=== PATIENT | female | born 1995 | race Caucasian/White ===

== ENCOUNTER → 2017-05-03 | Outpatient (CLI) | payer OTHER ==
[~2017-05-03] MED LIST: LEVO112T2 PO; NORG1TAB3 PO; OXYC1TAB63 PO
[2017-05-03 13:55] LABS: BASOPHIL % 0.4 % (0.0-2.0); EOSINOPHIL # 0.1 TH/MM3 (0-0.4); EOSINOPHIL % 0.7 % (0.0-4.0); HEMATOCRIT 39.7 % (35.0-46.0); HEMO FLAGS DIFF FINAL; LYMPH % 32.7 % (9.0-44.0); LYMPHOCYTE # 2.8 TH/MM3 (1.0-4.8); MEAN CELL VOLUME 88.1 FL (80.0-100.0); MEAN CORPUSCULAR HEMOGLOBIN 29.3 PG (27.0-34.0); MEAN CORPUSCULAR HGB CONC 33.2 % (32.0-36.0); NEUT % 59.2 % (16.0-70.0); PLATELET COUNT 309 TH/MM3 (150-450); RED BLOOD COUNT 4.51 MIL/MM3 (4.00-5.30); RED CELL DISTRIBUTION WIDTH 13.1 % (11.6-17.2); WHITE BLOOD COUNT 8.5 TH/MM3 (4.0-11.0)
[2017-05-03 14:03] LABS: APTT (PATIENT) 30.3 SEC (24.3-30.1); INTERNATIONAL NORMALIZED RATIO 0.9 RATIO; PROTHROMBIN TIME - PATIENT 10.3 SEC (9.8-11.6)
[2017-05-03 14:18] LABS: ALT (GPT) 35 U/L (10-53); ANION GAP 11 MEQ/L (5-15); AST (GOT) 28 U/L (15-37); BICARBONATE 23.5 MEQ/L (21.0-32.0); BLOOD UREA NITROGEN 12 MG/DL (7-18); CHLORIDE 106 MEQ/L (98-107); GLOMERULAR FILTRATION RATE 81 ML/MIN (>89); GLUCOSE,FASTING 69 MG/DL (74-99); POTASSIUM 3.9 MEQ/L (3.5-5.1); SODIUM (NA) 140 MEQ/L (136-145)
[2017-05-03 14:22] LABS: ALKALINE PHOSPHATASE 81 U/L (45-117); LDH SERUM 158 U/L (84-246); TOTAL BILIRUBIN ADULT 0.4 MG/DL (0.2-1.0)
[2017-05-03 14:33] LABS: BHCG SCREEN QUALITATIVE LESS THAN 1 MIU/ML (0-5)
== END ==
LOC: CPRE 12:30
PROVIDERS: ATTEND Obstetrics & Gynecology Gynecologic Oncology
DX: Z01.812 Encounter for preprocedural laboratory examination (principal); R19.09 Other intra-abdominal and pelvic swelling, mass and lump
CPT/HCPCS: 36415; 80053; 82105; 82378; 83615; 84703; 85025; 85610; 85730; 86304

== ENCOUNTER 2017-05-10 08:22 | Observation (INO) | payer OTHER ==
[~2017-05-10] VITALS: Ht 162.6 cm; Wt 87.5 kg
[~2017-05-10 08:22] MED LIST changes: -OXYC1TAB63 PO
[2017-05-10 09:38] VITALS: BP 129/80; PULSE 71; RESP 20; TEMP 98.6; O2SAT 100
[2017-05-10] MEDS ORDERED: HEPARIN SODIUM - SQ 10,000 UNITS/ML VIAL SQ SCH (09:45)
[2017-05-10] MEDS ORDERED: CHLORHEXIDINE GLUCONATE 2 % 1 PACK (2 CLOTHS) TOPICAL PRN (09:45)
[2017-05-10] MEDS ORDERED: METOPROLOL TARTRATE 25 MG TAB PO PRN (09:45)
[2017-05-10] MEDS ORDERED: LACTATED RINGER'S 1000 ML IV PRN (09:45)
[2017-05-10] MEDS ORDERED: INSULIN HUMAN REGULAR 1,000 UNITS/10 ML VIAL SQ PRN (09:45)
[2017-05-10] MEDS ORDERED: SODIUM CHLORID 0.9% 500 ML IV PRN (09:45)
[2017-05-10] MEDS ORDERED: ceFAZolin 2 GM PREMIX 50 ML IV SCH (09:45)
[2017-05-10] MEDS ORDERED: POVIDONE IODINE 5% (ANTISEPSIS KIT) 4 APPLICATIONS EACH NARE PRN (09:45)
[2017-05-10] MEDS ORDERED: ACETAMINOPHEN 1000 MG/100 ML VIAL IV ONE (11:03)
[2017-05-10] MEDS ORDERED: MIDAZOLAM HCL 2 MG/2 ML VIAL ONE (11:04)
[2017-05-10] MEDS ORDERED: HYDROmorphone HCL PF 2 MG/ML VIAL ONE (11:04)
[2017-05-10] MEDS ORDERED: fentaNYL CITRATE 250 MCG/5 ML AMP ONE ×2 (11:04→16:09)
[2017-05-10] MEDS ORDERED: ARTIFICIAL TEARS OPTH OINT 3.5 APPLIC/3.5 GM TUBO ONE (11:04)
[2017-05-10] MEDS ORDERED: FAMOTIDINE 20 MG/2 ML VIAL ONE (11:05)
[2017-05-10] MEDS ORDERED: DEXAMETHASONE SOD PHOS 4 MG/ML VIAL ONE (11:05)
[2017-05-10] MEDS ORDERED: SUGAMMADEX SODIUM 200 MG/2 ML VIAL IV PUSH ONE ×2 (11:05)
[2017-05-10] MEDS ORDERED: ONDANSETRON HCL 4 MG/2 ML VIAL IV PUSH ONE (12:00)
[2017-05-10] MEDS ORDERED: PROPOFOL 200 MG/20 ML AMP IV ONE (12:00)
[2017-05-10] MEDS ORDERED: VECURONIUM BROMIDE 10 MG VIAL IV ONE (12:00)
[2017-05-10] MEDS ORDERED: KETOROLAC TROMETHAMINE 60 MG/2 ML (IM) VIAL IM ONE (12:00)
[2017-05-10] MEDS ORDERED: NEOSTIGMINE 3 MG/3 ML SYR IV ONE (12:00)
[2017-05-10] MEDS ORDERED: NORMOSOL R INJ 1,000 ML IV ONE (12:00)
[2017-05-10] MEDS ORDERED: LIDOCAINE 1%/EPINEPHrine 1:100,000 SOLN 30 ML VIAL INFIL ONE (12:31)
[2017-05-10] MEDS ORDERED: ceFAZolin INJ 1,000 MG VIAL IV ONE (14:00)
[2017-05-10] MEDS ORDERED: SILVER NITR/POTASSIUM NITRATE APPLICATORS TOPICAL ONE (15:29)
[2017-05-10] MEDS: D5-1/2 NS + KCL 20 MEQ INJ 1,000 ML IV SCH ×2 (15:51→23:51)
[2017-05-10] MEDS ORDERED: diphenhydrAMINE HCL 25 MG CAP PO PRN (16:00)
[2017-05-10] MEDS ORDERED: SODIUM CHLORIDE 0.9% FLUSH 10 ML FLUSH IV FLUSH PRN (16:00)
[2017-05-10] MEDS ORDERED: oxyCODONE/ACETAMINOPHEN 5 MG/325 MG TAB PO PRN ×2 (16:00)
[2017-05-10] MEDS ORDERED: LORazepam 0.5 MG TAB PO PRN (16:00)
[2017-05-10] MEDS ORDERED: *morphine SULFATE 8 MG/ML PERIprocedure ONLY ONE ×2 (16:17→17:07)
[2017-05-10] MEDS ORDERED: D5-NS + KCL 20 MEQ INJ 1,000 ML ONE (16:28)
[2017-05-10] MEDS: KETOROLAC TROMETHAMINE 30 MG/ML (IVP) VIAL IVP SCH ×2 (17:00→21:05)
[2017-05-10 17:30] VITALS: BP 104/57; PULSE 100; RESP 18; TEMP 98; O2SAT 95
[2017-05-10] MEDS ORDERED: DO NOT ADM ANY ANTICOAGULANT DRUGS PRN (18:00)
[2017-05-10] MEDS: ONDANSETRON HCL 4 MG/2 ML VIAL IVP PRN (18:09)
[2017-05-10] MEDS: HYDROmorphone HCL PF 1 MG/ML VIAL IVP PRN (18:09)
[2017-05-10 20:00] VITALS: BP 108/57; PULSE 91; RESP 20; TEMP 96.7; O2SAT 96
[2017-05-10] MEDS: SODIUM CHLORIDE 0.9% FLUSH 10 ML FLUSH IV FLUSH SCH (21:00)
[2017-05-11] VITALS: BP 124/70; PULSE 107; RESP 20; TEMP 96.7; O2SAT 99
[2017-05-11] MEDS: ONDANSETRON HCL 4 MG/2 ML VIAL IVP PRN (00:44)
[2017-05-11] MEDS: HYDROmorphone HCL PF 1 MG/ML VIAL IVP PRN (00:45)
[2017-05-11 04:00] VITALS: BP 117/65; PULSE 81; RESP 20; TEMP 96.7; O2SAT 99
[2017-05-11] MEDS: KETOROLAC TROMETHAMINE 30 MG/ML (IVP) VIAL IVP SCH ×2 (04:35→11:00)
[2017-05-11] MEDS: LEVOTHYROXINE SODIUM 112 MCG TAB PO SCH ×2 (04:35→04:37)
[2017-05-11] MEDS: D5-1/2 NS + KCL 20 MEQ INJ 1,000 ML IV SCH (06:39)
[2017-05-11] MEDS ORDERED: OXYC1TAB63 PO (06:48)
[2017-05-11 08:00] VITALS: BP 110/63; PULSE 112; RESP 18; TEMP 98.8; O2SAT 98
[2017-05-11] MEDS: SODIUM CHLORIDE 0.9% FLUSH 10 ML FLUSH IV FLUSH SCH (08:24)
[2017-05-11 08:27] LABS: AUTOMATED NEUTROPHIL # 7.5 TH/MM3 (1.8-7.7); BASOPHIL % 0.2 % (0.0-2.0); EOSINOPHIL % 0.3 % (0.0-4.0); HEMATOCRIT 33.8 % (35.0-46.0); HEMO FLAGS DIFF FINAL; LYMPH % 24.7 % (9.0-44.0); LYMPHOCYTE # 2.8 TH/MM3 (1.0-4.8); MEAN CELL VOLUME 86.9 FL (80.0-100.0); MEAN CORPUSCULAR HEMOGLOBIN 29.7 PG (27.0-34.0); MEAN CORPUSCULAR HGB CONC 34.2 % (32.0-36.0); MONO % 7.8 % (0.0-8.0); PLATELET COUNT 236 TH/MM3 (150-450); RED BLOOD COUNT 3.88 MIL/MM3 (4.00-5.30); RED CELL DISTRIBUTION WIDTH 12.7 % (11.6-17.2); WHITE BLOOD COUNT 11.2 TH/MM3 (4.0-11.0)
[2017-05-11 08:34] LABS: POTASSIUM 3.6 MEQ/L (3.5-5.1)
[2017-05-11 12:00] VITALS: BP 118/64; PULSE 109; RESP 16; TEMP 98.6; O2SAT 100
--- NOTE | 2017-05-15 09:56 | MP ---
cc: LISA JONES M.D., JERRY MD MOLPUS,JOSE Walsh MD DATE OF SURGERY 05/10/2017 PREOPERATIVE DIAGNOSIS Complex pelvic mass. POSTOPERATIVE DIAGNOSES 1. Right ovarian fibroma. 2. Possible intermittent torsion. PROCEDURE Robotic-assisted laparoscopic right salpingo-oophorectomy. SURGEON Jose Caorlina MD [employer]ESSION[employer]. ANESTHESIA General endotracheal anesthesia. ESTIMATED BLOOD LOSS 50 cc. IV FLUIDS 2000 cc. URINE OUTPUT 175 cc. HISTORY A 21-year-old female with abdominopelvic pain found on exam and imaging to have a prominent, approximately 12-cm complex irregular mass in the pelvis thought to be of probable ovarian origin. There was no overt evidence to suggest metastatic disease except a borderline enlarged paraaortic lymph node. Her germ cell tumor markers were within normal limits. She was counseled regarding intervention, understood that in all probability the affected tube and ovary would need to be removed with the surgical objectives to be as conservative as possible given her young age to preserve the uterus, contralateral tube and ovary. She was seen again in the preop holding area were again these issues are discussed, the objective even in the setting of a malignancy to resect the malignancy and be conservative with respect to the reproductive organs if at all possible. Additional staging biopsies may be warranted and we would try to accomplish the goals laparoscopically as per our previous discussion. She understands and agrees to move forward. FINDINGS Entry into the peritoneal cavity revealed a solid multilobulated mass replacing the right ovary wedged in the posterior cul-de-sac, but with some capacity to rotate suggesting it may have intermittently torsed. The mass was arising from and replacing the right ovary. There was no identifiable remaining normal ovary. The left tube and ovary grossly appeared normal. The uterus appeared normal. The peritoneal surfaces were without implants. There was no appreciably enlarged adenopathy. Frozen section analysis of the mass suggested it to be a spindle cell neoplasm favoring a benign fibroma. There was no overt findings to suggest malignancy on preliminary histopathologic evaluation. PROCEDURE The patient was taken to the operating room, placed in dorsal lithotomy position. After general endotracheal anesthesia was administered, time-out was undertaken. She was identified by sight recognition and hospital ID bracelet and the proposed procedure was reviewed and confirmed. She was carefully positioned in padded Hernandez stirrups. Her arms were padded and secured to her sides. She was further secured to the operating table with eggcrate padding and tape in across-chest, over the shoulder fashion. All sites noted to be properly aligned with no malalignments or pressure points. She was prepped and draped in sterile fashion, placed in high lithotomy position. The cervix was grasped, the uterine cavity sounded; it was dilated. The uterus was deviated to the left and a standard V-Care manipulator was inserted and secured in the usual fashion, a Lal catheter placed in the bladder. She was returned to low lithotomy position. Change of sterile gloves was undertaken. We confirmed an orogastric tube was in the stomach on suction and moved forward with laparoscopy. With manual elevation of the abdominal wall and direct laparoscopic visualization, a 5-mm cannula was placed in the left upper quadrant. Carbon dioxide gas was insufflated and an atraumatic entry was confirmed. Under laparoscopic guidance, an 8-mm cannula was placed in the right upper quadrant. She was placed in steep Trendelenburg position. The anatomy was surveyed to determine if this could be accomplished laparoscopically; it was felt that it could be accomplished laparoscopically so a 10-mm cannula placed in the midline above the umbilicus and an 8-mm cannula was placed in the left upper abdomen. The original 5-mm was changed for an 8-mm cannula. Peritoneal washings were obtained for cytology. The small bowel was folded back on its mesenteric root. Three Ray-Geoffrey sponges were placed around the root of the small bowel mesentery. The robotic system was brought into the operative field and attached in the usual fashion. The robotic system was brought into the operative field and attached in the usual fashion. Monopolar scissors, fenestrated bipolar forceps and ProGrasp manipulators were placed in arms #1, 2 and 3 respectively and I took my place at the surgeon's console. Retroperitoneal dissection was carried out on the right lateral and parallel to the gonadal vessels. The right ureter was identified. The right infundibulopelvic ligament was isolated. The intervening peritoneum was opened. The anatomy was inspected and confirmed that there was no normal-appearing remaining ovary such that it was felt that the entire ovary needed to be removed to remove this mass so the gonadal vessels were cauterized and transected. Dissection was continued distally and circumferentially to isolate the right utero-ovarian ligament. There were minimal adhesions around this mass, taken down with sharp dissection and the right uteroovarian ligament was cauterized and transected thereby removing the right tube and ovary. Grossly this appeared to be a fibroma so it was felt that all reasonable surgical objectives had been completed pending preliminary pathology so the robotic instruments were removed. The robotic system was disengaged from the operative field and I reentered the bedside under sterile condition. Each of the three Ray-Geoffrey sponges that were placed in the peritoneal cavity were removed. Each were inspected individually noted to be removed in their entirety. The fascial incision was extended by sharp dissection and a 15-cm EndoCatch bag was used to capture the mass and bring it up to the abdominal wall. Time-consuming tedious dissection to dissect this mass into the smaller pieces to gradually reduce the size until the remaining mass could be brought out through the abdominal wall with the remaining fragments contained within the EndoCatch bag and was sent for pathologic evaluation. The 12-mm fascial defect that had been extended was closed with interrupted 0 Vicryl sutures using a needle pass apparatus tied securely which rendered the fascia completely airtight and hemostatic. The remaining cannulas were withdrawn. Carbon dioxide gas was removed from the peritoneal cavity after confirming there were no remaining foreign objects in the peritoneal cavity and preliminary counts were correct. These incisions were closed with 3-0 Vicryl subcutaneous, 3-0 Vicryl subcuticular and Steri-Strips. Final counts were correct. She was returned to dorsal lithotomy position. The V-Care manipulator was removed. The suture site from the cervix was rendered hemostatic with interrupted 3-0 Vicryl suture and silver nitrate. There were no remaining foreign objects in the vagina. Final counts were correct and all sites were hemostatic. She was returned to dorsal supine position and was pending reversal of anesthesia when I left the operating room to precede her to the Post-Anesthesia Care Unit. MD JANELLE Case/KIMI /7:52 AM /9:37 AM
--- NOTE | 2017-05-15 13:18 | MD ---
cc: LISA JONES M.D., JERRY MD MOLPUS,JOSE Walsh MD ADMISSION DATE: 05/10/2017 DISCHARGE DATE: 05/11/2017 PROCEDURE 05/10/2017 - Robotic-assisted laparoscopic resection of right pelvic mass (right salpingo-oophorectomy). PRELIMINARY PATHOLOGY Right ovarian fibroma. HOSPITAL COURSE She did well in the early postoperative period, hemodynamically stable, pain adequately controlled, tolerating oral intake. Lal catheter removed pending voiding. In's and out's [id number]. Labs pending. PHYSICAL EXAMINATION VITAL SIGNS: Afebrile, pulse 81-107, respirations 16-20, blood pressure 104-124/57-65, O2 saturations greater than 99% while awake. LUNGS: Clear. Mild basilar rales. CARDIOVASCULAR: Regular rate and rhythm. ABDOMEN: Soft. Incisions clean and dry. CH[place] DECORATOR: No bleeding. EXTREMITIES: Nontender. ASSESSMENT Postop day #1 doing well in early postop period. Preliminary findings and pathology discussed and reviewed. Activities and restrictions again covered. Questions were asked and answered. She expressed good understanding. PLAN Therefore anticipate discharge to home. She is to resume her prior medications. She will have a prescription for Percocet. She has our office number and she is asked to call our office to schedule follow up in 2 weeks or to contact us should she have any questions or problems in the interim. Jose Carolina MD KM/SSB /6:49 AM /1:10 PM
== END 2017-05-11 13:05 | disposition home or self-care (01) ==
LOC: HSDC 08:22 → HSDI 15:53 → HOCB 17:36
PROVIDERS: ADMIT Obstetrics & Gynecology Gynecologic Oncology; ATTEND Obstetrics & Gynecology Gynecologic Oncology
DX: D36.7 Benign neoplasm of other specified sites (principal); D27.0 Benign neoplasm of right ovary; M47.896 Other spondylosis, lumbar region; E07.9 Disorder of thyroid, unspecified; K76.0 Fatty (change of) liver, not elsewhere classified
CPT/HCPCS: 00840; 58661; 80048; 85025; 86850; 86900; 86901; 88307; 88331; 94150; G0378; J0131; J0690; J1100; J1170; J1644; J1885; J2250; J2270; J2405; J2710; J3010; J3480; S2900; 88305